=== PATIENT | female | born 1995 | race Caucasian/White ===

== ENCOUNTER → 2019-10-25 12:42 | Outpatient (CLI) | payer SELFPAY ==
[2015-12-28 23:18] VITALS: BMI 24.4
[2019-10-25 13:43] LABS: International Normalized Ratio 0.9; Prothrombin Time (Protime)PT. 12.3 SECONDS (11.7-14.9)
[2019-10-25 13:44] LABS: Partial Thromboplast Time 33.8 Seconds (24.1-36.2)
== END ==
PROVIDERS: Referring Provider Obstetrics & Gynecology; Visit Provider Obstetrics & Gynecology
DX: N92.0 Excessive and frequent menstruation with regular cycle (principal)
CPT/HCPCS: 36415; 85610; 85730

== ENCOUNTER → 2022-02-11 | Outpatient (CLI) | payer OTHER, SELFPAY ==
[2022-02-11 13:39] LABS: Hemoglobin 13.6 g/dL (12.0-15.0); Mean Corp Hgb Conc 33.2 g/dL (32-36); Mean Corpuscular Hgb 29.7 pg (27.0-32.0); Mean Corpuscular Volume 89.5 fL (81-99); Platelet Count 439 K/mm3 (150-450); RBC Distribution Width CV 12.8 % (11.6-14.6); RBC Distribution Width SD 42.1 fl (35.1-43.9); Red Blood Count 4.58 M/mm3 (4.2-5.4); White Blood Count 13.3 K/mm3 (4.4-11.0)
[2022-02-11 13:50] LABS: Ferritin 27 ng/mL (8-252); Iron 45 ug/dL (50-170); Iron Binding Capacity,Total 352 ug/dL (250-450)
[2022-02-14 13:07] LABS: Chlamydia By Nucleic Acid AMP Negative (Negative)
[2022-02-14 13:10] LABS: Gonococcus By Nucleic Acid AMP Negative (Negative)
[2022-02-18 14:21] LABS: HPV Reflexed? NOT INDICATED
== END | disposition home or self-care (01) ==
LOC: WOBLAB 11:10
PROVIDERS: Visit Provider Obstetrics & Gynecology
DX: D64.9 Anemia, unspecified (principal); Z12.4 Encounter for screening for malignant neoplasm of cervix; Z11.3 Encounter for screening for infections with a predominantly sexual mode of transmission
CPT/HCPCS: 36415; 82728; 83540; 83550; 85027; 87491; 87591; 88175; G0145

== ENCOUNTER → 2022-02-19 | Outpatient (CLI) | payer OTHER, SELFPAY ==
[2022-02-19 11:13] LABS: hCG Titer Quant., Serum 362 mIU/mL (1-3)
== END | disposition home or self-care (01) ==
LOC: WOBLAB 09:40
PROVIDERS: Visit Provider Obstetrics & Gynecology
DX: N91.2 Amenorrhea, unspecified (principal)
CPT/HCPCS: 36415; 84702

== ENCOUNTER → 2022-03-17 | Outpatient (CLI) | payer OTHER, SELFPAY ==
[2022-03-17 15:32] LABS: Color, Urine Yellow (Yellow); Glucose, Dipstick Normal (Normal); Ketone-Dipstick Negative (Negative); Leukocyte Esterase-Dipstick Negative /ul (Negative); Nitrite-Dipstick Negative (Negative); Occult Blood-Urine Negative /ul (Negative); Protein-Dipstick Negative (Negative); Urine Bilirubin Dipstick Negative (Negative); Urine Clarity Clear (Clear); Urine Urobilinogen Normal (Normal)
[2022-03-17 15:39] LABS: Absolute Lymphocyte Count 2.97 X10^3/uL (0.83-4.51); Basophil# 0.08 X10^3/uL; Basophil% 0.6 % (0-1); Eosinophil# 0.19 X10^3/uL; Eosinophils% 1.3 % (0-5); Hematocrit 39.9 % (37-47); Hemoglobin 13.4 g/dL (12.0-15.0); Lymphocyte # 2.97 X10^3/ul (0.83-4.51); Lymphocyte % 20.8 % (19-41); Mean Corp Hgb Conc 33.6 g/dL (32-36); Mean Corpuscular Hgb 29.5 pg (27.0-32.0); Mean Corpuscular Volume 87.9 fL (81-99); Mean Platelet Vol. 9.6 fl (6.2-12.0); Monocyte% 6.3 % (0-10); NRBC Flagged by Analyzer 0 % (0-5); Neutrophil # 10.04 X10^3/uL (2.7-7.7); Neutrophil % 70.4 % (47-70); Platelet Count 390 K/mm3 (150-450); RBC Distribution Width CV 12.7 % (11.6-14.6); RBC Distribution Width SD 40.5 fl (35.1-43.9); Red Blood Count 4.54 M/mm3 (4.2-5.4); White Blood Count 14.3 K/mm3 (4.4-11.0)
[2022-03-17 16:29] LABS: Thyroid Stim Hormone (TSH) 0.76 uIU/mL (0.358-3.74)
[2022-03-17 16:40] LABS: Amphetamine Urine VISTA NEGATIVE (<1000 ng/mL); Barbiturate Urine VISTA NEGATIVE (< 200 ng/mL); Benzodiazepine Urine VISTA NEGATIVE (< 200 ng/mL); Cocaine Urine VISTA NEGATIVE (< 300 ng/mL); Ecstacy Urine VISTA NEGATIVE (< 500 ng/mL); Methadone Urine VISTA NEGATIVE (< 300 ng/mL); PCP Urine VISTA NEGATIVE (< 25 ng/mL); THC Urine VISTA NEGATIVE (< 50 ng/mL); Vista UDS pH Range 7
[2022-03-18 01:26] LABS: HIV - WCH Non-Reactive (Nonreactive); Hepatitis B Surface Antigen Non-Reactive (Nonreactive); Hepatitis C Antibody Non-Reactive (Nonreactive); Rubella IgG Reactive (Nonreactive); Syphilis Antibodies Non-reactive
== END | disposition home or self-care (01) ==
LOC: WOBLAB 15:12
PROVIDERS: Visit Provider Obstetrics & Gynecology
DX: Z34.81 Encounter for supervision of other normal pregnancy, first trimester (principal)
CPT/HCPCS: 36415; 80307; 81002; 84443; 85025; 86703; 86762; 86780; 86803; 87086; 87340

== ENCOUNTER 2022-07-13 10:38 | Outpatient (CLI) | payer OTHER, SELFPAY ==
[2022-07-13 11:26] LABS: Absolute Lymphocyte Count 2.39 X10^3/uL (0.83-4.51); Absolute Neutrophil Count 10.4 X10^3/uL (2.0-7.7); Basophil# 0.12 X10^3/uL; Basophil% 0.8 % (0-1); Eosinophil# 0.25 X10^3/uL; Eosinophils% 1.7 % (0-5); Hematocrit 36.7 % (37-47); Hemoglobin 12.3 g/dL (12.0-15.0); Lymphocyte # 2.39 X10^3/ul (0.83-4.51); Lymphocyte % 16.6 % (19-41); Mean Corp Hgb Conc 33.5 g/dL (32-36); Mean Corpuscular Hgb 30.1 pg (27.0-32.0); Mean Corpuscular Volume 89.7 fL (81-99); Monocyte# 0.82 X10^3/uL; Monocyte% 5.7 % (0-10); NRBC Flagged by Analyzer 0 % (0-5); Neutrophil # 10.37 X10^3/uL (2.7-7.7); Neutrophil % 72.1 % (47-70); Platelet Count 397 K/mm3 (150-450); RBC Distribution Width CV 13.6 % (11.6-14.6); RBC Distribution Width SD 44.3 fl (35.1-43.9); Red Blood Count 4.09 M/mm3 (4.2-5.4); White Blood Count 14.4 K/mm3 (4.4-11.0)
[2022-07-13 11:35] LABS: Glucose Challenge Gest 1H 50g 90 mg/dL (70-140)
== END 2022-07-13 23:59 | disposition home or self-care (01) ==
LOC: LABSPEC 10:39
PROVIDERS: Visit Provider Student in an Organized Health Care Education/Training Program
DX: Z34.82 Encounter for supervision of other normal pregnancy, second trimester (principal)
CPT/HCPCS: 36415; 82950; 85025

== ENCOUNTER → 2022-08-18 | Outpatient (CLI) | payer OTHER, SELFPAY | END | disposition home or self-care (01) | LOC: LABSPEC 09:31 | PROVIDERS: Visit Provider Student in an Organized Health Care Education/Training Program | DX: R30.0 Dysuria (principal) | CPT/HCPCS: 87086; 87088 ==

== ENCOUNTER → 2022-10-06 | Outpatient (CLI) | payer OTHER, SELFPAY ==
[2022-10-06 10:44] LABS: Absolute Lymphocyte Count 2.57 X10^3/uL (0.83-4.51); Absolute Neutrophil Count 9.8 X10^3/uL (2.0-7.7); Basophil# 0.08 X10^3/uL; Basophil% 0.6 % (0-1); Eosinophil# 0.26 X10^3/uL; Eosinophils% 1.9 % (0-5); Hematocrit 36.9 % (37-47); Lymphocyte # 2.57 X10^3/ul (0.83-4.51); Lymphocyte % 18.7 % (19-41); Mean Corp Hgb Conc 32.5 g/dL (32-36); Mean Corpuscular Hgb 27.6 pg (27.0-32.0); Mean Platelet Vol. 9.9 fl (6.2-12.0); Monocyte# 0.84 X10^3/uL; Monocyte% 6.1 % (0-10); NRBC Flagged by Analyzer 0 % (0-5); Neutrophil # 9.78 X10^3/uL (2.7-7.7); Platelet Count 373 K/mm3 (150-450); RBC Distribution Width CV 12.9 % (11.6-14.6); RBC Distribution Width SD 39.2 fl (35.1-43.9); Red Blood Count 4.34 M/mm3 (4.2-5.4); White Blood Count 13.8 K/mm3 (4.4-11.0)
[2022-10-06 11:34] LABS: Syphilis Antibodies Non-reactive
== END | disposition home or self-care (01) ==
PROVIDERS: Visit Provider Student in an Organized Health Care Education/Training Program
DX: Z34.83 Encounter for supervision of other normal pregnancy, third trimester (principal)
CPT/HCPCS: 36415; 85025; 86780; 87081

== ENCOUNTER 2022-10-18 09:10 | Inpatient (IN) | payer OTHER, SELFPAY ==
[2022-10-18] VITALS (44 sets, daily range): BP systolic 100–138; BP diastolic 58–83; PULSE 90–131; TEMP 36–37.1; O2SAT 76–100; BMI 34.9
[2022-10-18 09:09] LABS: ROM Internal Control Test YES-OK TO RESULT pt. (Internal QC)
[2022-10-18 09:10] LABS: ROM Patient Test POSITIVE (Negative)
--- NOTE | 2022-10-18 09:25 | HP.PCM.OB_ITS ---
History and Physical Date of Admission: 10/18/22 HPI: 27-year-old G1, P0 at 38/3 weeks, DAREN 10/29/2022 by LMP consistent with first trimester ultrasound, admitted for spontaneous rupture of membranes. Patient rupture membranes around 630 this morning. Reports regular contractions. Denies vaginal bleeding. Reports movement. Denies headache or vision changes, chest pain or shortness of breath, nausea or vomiting, diarrhea or constipation, fevers or chills. uncomplicated [employer] history: G1 current Medical history: Denies Surgical history: Denies Allergies: 1. Augmentin causes diarrhea Family history: Denies history of blood clots or bleeding disorders Social history: Denies tobacco, alcohol, drug use Review system: Negative otherwise stated above Physical exam: Blood pressure 128/77, heart rate 105, temp 97.7 ?F, oxygen saturation 96% on room air General: No acute distress HEENT: Normal cephalic/atraumatic, PERRLA Cardiorespiratory: No increased effort Abdomen: Soft, nontender, gravid Extremities: Minimal edema Cervical exam: 4 cm, grossly ruptured per RN Neurologic: Cranial nerves II through XII grossly intact, no focal deficits Musculoskeletal: Strength 5 out of 5 throughout extremities FHR: 120/mod leighann/+accel/no decel [place]: q5-7 Assessment/plan: 27-year-old G1, P0 at 38/3 weeks, DAREN 10/29/2022 by LMP consistent with first trimester ultrasound, admitted for spontaneous rupture of membranes. uncomplicated ?Admit for spontaneous rupture of membranes, labor. ?GBS negative ?Plan for expectant management at this time as patient has made cervical change from last visit last week ?Will augment with Pitocin if needed
[2022-10-18 09:46] LABS: Absolute Lymphocyte Count 2.27 X10^3/uL (0.83-4.51); Absolute Neutrophil Count 11.2 X10^3/uL (2.0-7.7); Basophil# 0.07 X10^3/uL; Basophil% 0.5 % (0-1); Eosinophil# 0.22 X10^3/uL; Eosinophils% 1.5 % (0-5); Hematocrit 36.4 % (37-47); Hemoglobin 12.3 g/dL (12.0-15.0); Lymphocyte # 2.27 X10^3/ul (0.83-4.51); Lymphocyte % 15.3 % (19-41); Mean Corp Hgb Conc 33.8 g/dL (32-36); Mean Corpuscular Volume 82.7 fL (81-99); Mean Platelet Vol. 9.9 fl (6.2-12.0); Monocyte# 0.79 X10^3/uL; Monocyte% 5.3 % (0-10); NRBC Flagged by Analyzer 0 % (0-5); Neutrophil # 11.22 X10^3/uL (2.7-7.7); Neutrophil % 75.7 % (47-70); Platelet Count 384 K/mm3 (150-450); RBC Distribution Width CV 13.4 % (11.6-14.6); RBC Distribution Width SD 39.9 fl (35.1-43.9); White Blood Count 14.8 K/mm3 (4.4-11.0)
[2022-10-18] MEDS: 0.9% Saline Lock 10 ML Syringe IV (13:16)
[2022-10-18] MEDS: Oxytocin 15 Units/NS 250ml 15 UNITS/250 ML IV.SOLN 2 UNITS IV (13:19)
[2022-10-18] MEDS: Lactated Ringers 1,000 ML 50 ML IV (13:22)
[2022-10-18] MEDS: LACTATED RINGERS 500 ML 999 ML IV ×2 (14:10→19:13)
[2022-10-18] MEDS: fentaNYL-bupivacaine (epidural) 100 ML BAG EPIDURAL ×3 (14:45→23:50)
[2022-10-18] MEDS: Lactated Ringers 1,000 ML 200 ML IV (19:08)
--- NOTE | 2022-10-18 19:37 | PN.OBGYN_ITS ---
Subjective Subjective Called for prolonged heart rate deceleration. Upon arrival patient on hands and knees, comfortable with epidural. Objective Data Objective Data Vital Signs: Vital Signs Temp Pulse BP Pulse Ox 98.1 F 109 H 138/73 H 100 10/18/22 17:22 10/18/22 19:29 10/18/22 19:28 10/18/22 19:29 Weight: 101.378 kg Body Mass Index (BMI) 34.9 Intake & Output: Intake and Output for Last 24 Hours 10/16/22 10/17/22 10/18/22 23:59 23:59 23:59 Intake Total 1457.51 / 1457.51 Balance 1457.51 / 1457.51 Lab / Micro Data Result Diagrams: 10/18/22 09:30 Labs: Laboratory Results - last 24 hr 10/18/22 08:45: Vag Amniotic Fld Detect POSITIVE H 10/18/22 09:30: WBC 14.8 H, RBC 4.40, Hgb 12.3, Hct 36.4 L, MCV 82.7, MCH 28.0, MCHC 33.8, RDW Std Deviation 39.9, RDW Coeff of Rodrick 13.4, Plt Count 384, MPV 9.9, Immature Gran % (Auto) 1.700 H, Neut % (Auto) 75.7 H, Lymph % (Auto) 15.3 L , Rosebud % (Auto) 5.3, Eos % (Auto) 1.5, Baso % (Auto) 0.5, Absolute Neuts (auto) 11.2 H, Absolute Lymphs (auto) 2.27, Nucleated RBC % 0 10/18/22 09:30: Blood Type O POSITIVE, Antibody Screen NEGATIVE Physical Exam Const alert, oriented x3 and no apparent distress Resp normal respiratory effort Cardio regular rate GI non-tender and non-distended Inspection: gravid Narrative: 8 cm per rn Extremity Extremity Narrative: minimal edema Assessment & Plan (1) Spontaneous rupture of membranes: PLAN: 27-year-old G1 at 38/3 weeks admitted for rupture membranes. Prolonged heart rate deceleration to a maylin of 90s for 9 minutes. Resolved with position change, Pitocin off, LR bolus, oxygen. Patient making rapid cervical change and descent. heart rate now 125/moderate variability/no accelerations/no decelerations. Continue with expectant management at this time. Will restart Pitocin if needed after at least 30 minutes of category 1 strip. All questions answered in room.
[2022-10-18] MEDS: Mag Hydrox/Al Hydrox/Simeth 30 ML UDC PO (23:52)
[2022-10-19] VITALS (23 sets, daily range): BP systolic 104–135; BP diastolic 54–92; PULSE 77–117; RESP 14–18; TEMP 36.1–37.2; O2SAT 96–99
[2022-10-19] MEDS: LACTATED RINGERS 500 ML 999 ML IV (00:23)
[2022-10-19] MEDS: Lactated Ringers 1,000 ML 200 ML IV (00:54)
[2022-10-19] MEDS: Sodium Citrate/Citric Acid 30 ML UDC PO (01:05)
[2022-10-19] MEDS: Acetaminophen 500 MG Tablet PO (01:06)
--- NOTE | 2022-10-19 01:07 | PCM.PN.OB ---
Subjective Subjective Patient seen and examined. Comfortable with epidural. Objective Data Objective Data Vital Signs: Vital Signs Temp Pulse BP Pulse Ox 99.0 F 117 H 135/75 H 97 10/19/22 00:44 10/19/22 00:44 10/19/22 00:44 10/19/22 00:44 Weight: 101.378 kg Body Mass Index (BMI) 34.9 Intake & Output: Intake and Output for Last 24 Hours 10/17/22 10/18/22 10/19/22 23:59 23:59 23:59 Intake Total 1982.44 / 1982.44 1448.53 / 1448.53 Output Total 1600 / 1600 Balance 383.44 / 383.44 1448.53 / 1448.53 Lab / Micro Data Result Diagrams: 10/18/22 09:30 Labs: Laboratory Results - last 24 hr 10/18/22 08:45: Vag Amniotic Fld Detect POSITIVE H 10/18/22 09:30: WBC 14.8 H, RBC 4.40, Hgb 12.3, Hct 36.4 L, MCV 82.7, MCH 28.0, MCHC 33.8, RDW Std Deviation 39.9, RDW Coeff of Rodrick 13.4, Plt Count 384, MPV 9.9, Immature Gran % (Auto) 1.700 H, Neut % (Auto) 75.7 H, Lymph % (Auto) 15.3 L, [place] % (Auto) 5.3, Eos % (Auto) 1.5, Baso % (Auto) 0.5, Absolute Neuts (auto) 11.2 H, Absolute Lymphs (auto) 2.27, Nucleated RBC % 0 10/18/22 09:30: Blood Type O POSITIVE, Antibody Screen NEGATIVE Physical Exam Const alert, oriented x3 and no apparent distress HEENT normocephalic Resp normal respiratory effort GI non-tender and non-distended Inspection: gravid Narrative: /-1. large amount of cervix anterior, Extremity Extremity Narrative: +1 edema Neuro moves all extremities and no sensory deficits noted Psych mental status grossly normal and affect normal Assessment & Plan (1) Spontaneous rupture of membranes: PLAN: 27-year-old G1 at 38/4 weeks admitted for spontaneous rupture membranes. Now planning for primary section in an urgent, nonemergent fashion for intolerance of labor. Since first prolonged heart rate deceleration yesterday evening, Patient has had 2 subsequent prolonged decelerations. An intermittent variable and late decelerations. Variability has been moderate, with accelerations. She had been making cervical change. However now cervix has been unchanged with large amount anterior. Unable to titrate Pitocin due to decelerations. Discussed options for management. Decision for primary section made. All risk, benefits, alternatives discussed patient. Risk include but are not limited to: Risk bleeding twin transfusion, infection, injury to surrounding tissue including bowel/bladder potentially requiring prolonged Austin catheter use, VTE, ICU admission. Patient aware and consented. Consent signed. All questions answered. Reports rash as a child to Augmentin, has received Keflex in the past. We will give 2 g Ancef and 500 mg azithromycin preoperatively. (2) intolerance to labor, delivered, current hospitalization:
[2022-10-19] MEDS: Cefazolin 2 GM in 0.9% Normal Saline 100 ML IV (01:25)
--- NOTE | 2022-10-19 02:14 | NURSING ---
Mother gives assent for hepatitis B vaccine
--- NOTE | 2022-10-19 02:18 | EX.PCM.OBRPT ---
Details Operative Information Date of Procedure: 10/19/22 Pre-Operative Diagnosis: Meek intrauterine , intolerance of labor Post-Operative Diagnosis: Meek intrauterine , intolerance of labor Indications Narrative: 27-year-old G1, P0 at 38/4 weeks for primary section for intolerance of labor. All risk, benefits, alternatives discussed with the patient. Risk include are not limited to: Risk of bleeding the point of transfusion, injury to surrounding tissue including bowel/bladder potentially requiring prolonged Austin catheter use, VTE, ICU admission. Patient were consented. Classification: JACKI Procedure Type: low transverse Type of Anesthesia: Epidural Estimated Blood Loss: 800cc Fluids Replaced: 1000cc Findings Description of Procedure: Patient taken to the operating room and epidural dosed. Patient placed in the supine position with a left lateral tilt. Vaginal prep completed. pillow placed into the vagina, 180 cc fluid instilled into the pillow. Abdomen then prepped. Patient draped. Pfannenstiel skin incision made with scalpel and carried down through subcutaneous tissue. Fascia nicked on either side of the midline and extended bluntly. Lizabeth clamps placed the superior fascial edge which was tented up and underlying rectus muscles were dissected off bluntly and sharply at midline using Galloway scissors. Lizabeth clamps moved to the inferior fascial edge which was tented up and underlying rectus muscles were dissected off bluntly and sharply at midline using Galloway scissors. Hemostats used to separate rectus muscle superiorly. Peritoneum entered bluntly. Bladder blade placed. Low transverse uterine incision made with scalpel and entered bluntly. Hysterotomy extended bluntly. Hand placed into the uterine cavity. head in the occiput posterior position. Head elevated to the level of the hysterotomy. Bladder blade removed. Head delivered followed by body. Nuchal cord x1, loose, reduced. Cord clamped and cut. Baby to nursing. Manual extraction of placenta. Uterus exteriorized and cleared of all clots. pillow drained. Hysterotomy closed with a run locking stitch followed by second imbricating stitch. Small amount of oozing noted, Shalom placed. Hysterotomy hemostatic. Peritoneum closed with a running stitch. Subcutaneous tissue irrigated. Skin closed with running subcuticular stitch. pillow removed from vagina. At the end of the procedure all needle, lap, sponge counts were correct. Urine output: 300 cc blood-tinged urine, was blood-tinged prior to surgery. Infant A Gender: Male (1 minute): 8 (5 minute): 9 Complications Complications: none
[2022-10-19] MEDS: Oxytocin 15 Units/NS 250ml 15 UNITS/250 ML IV.SOLN 83 UNITS IV (02:55)
[2022-10-19] MEDS: 0.9% Saline Lock 10 ML Syringe IV ×4 (03:04→21:49)
[2022-10-19] MEDS: Ketorolac 30 MG/ML Syringe IV ×4 (03:26→21:44)
--- NOTE | 2022-10-19 04:10 | NURSING ---
Patient given double pump and educated on use. Questions answered.
--- NOTE | 2022-10-19 06:37 | NURSING ---
pillow removed in OR, intact at 0210
[2022-10-19] MEDS: Lactated Ringers 1,000 ML 100 ML IV (06:44)
[2022-10-19] MEDS: Acetaminophen 500 MG Tablet 1000 MG PO ×3 (06:56→18:52)
[2022-10-19] MEDS: Senna/Docusate Sodium 1 Tablet PO (10:08)
[2022-10-19] MEDS: Enoxaparin 40 MG/0.4 ML Syringe SC (15:20)
[2022-10-20 01:00] VITALS: BP 127/62; PULSE 105; RESP 16; TEMP 36.8
[2022-10-20] MEDS: Acetaminophen 500 MG Tablet 1000 MG PO ×4 (01:05→18:47)
--- NOTE | 2022-10-20 02:07 | PCM.PN.OB ---
Subjective Subjective Doing well. Pain controlled. Lochia minimal. Objective Data Objective Data Vital Signs: Vital Signs Temp Pulse Resp BP Pulse Ox O2 Del Method 98.3 F 105 H 16 127/62 H 96 Room Air 10/20/22 01:00 10/20/22 01:00 10/20/22 01:00 10/20/22 01:00 10/19/22 15:26 10/20/22 01:00 Oxygen Delivery Method Room Air Weight: 101.378 kg Body Mass Index (BMI) 34.9 Intake & Output: Intake and Output for Last 24 Hours 10/18/22 10/19/22 10/20/22 23:59 23:59 23:59 Intake Total 1983.44 / 1983.44 2645.19 / 2645.19 Output Total 1600 / 1600 3450 / 3450 Balance 383.44 / 383.44 -804.81 / -804.81 Lab / Micro Data Attestation: I reviewed the patient's lab results. Result Diagrams: 10/18/22 09:30 Physical Exam Const alert, oriented x3 and no apparent distress HEENT normocephalic Head and Scalp: atraumatic Neck full ROM Resp normal respiratory effort Cardio regular rate GI normal to inspection, nondistended, normoactive bowel sounds GI Narrative: Uterus 2 cm below umbilicus, dressing clean and dry Back/Spine normal ROM Extremity normal to inspection Extremity Narrative: Minimal pedal edema Neuro no focal motor deficits and no sensory deficits noted Psych mental status grossly normal and affect normal Assessment & Plan (1) Other acute postprocedural pain: (2) Delivery by section: PLAN: Postop day 1 status post primary section for intolerance of labor. Pain controlled. Lochia minimal. Pumping. Likely home postop day 1?2.
[2022-10-20] MEDS: Ibuprofen 600 MG Tablet PO ×4 (03:30→22:09)
[2022-10-20 06:11] LABS: Hemoglobin 8.8 g/dL (12.0-15.0); Mean Corp Hgb Conc 32.6 g/dL (32-36); Mean Corpuscular Hgb 27.8 pg (27.0-32.0); Mean Corpuscular Volume 85.4 fL (81-99); Mean Platelet Vol. 9.8 fl (6.2-12.0); Platelet Count 349 K/mm3 (150-450); RBC Distribution Width CV 13.4 % (11.6-14.6); RBC Distribution Width SD 41.2 fl (35.1-43.9); Red Blood Count 3.16 M/mm3 (4.2-5.4)
[2022-10-20 08:05] VITALS: BP 106/55; PULSE 108; RESP 16; TEMP 36.3; O2SAT 96
[2022-10-20] MEDS: Enoxaparin 40 MG/0.4 ML Syringe SC (10:09)
[2022-10-20 14:00] VITALS: BP 122/62; PULSE 101; RESP 16; TEMP 36.3; O2SAT 94
[2022-10-20 20:10] VITALS: BP 124/79; PULSE 89; RESP 16; TEMP 37; O2SAT 97
[2022-10-21] MEDS: Acetaminophen 500 MG Tablet 1000 MG PO ×3 (01:09→13:14)
[2022-10-21 02:35] VITALS: BP 121/73; PULSE 107; RESP 16; TEMP 37.1; O2SAT 97
[2022-10-21] MEDS: Ibuprofen 600 MG Tablet PO ×3 (04:00→16:32)
--- NOTE | 2022-10-21 06:32 | DS.PCM_ITS ---
Discharge Summary Date of Admission: 10/18/22 Date of Discharge: 10/21/22 Summary: Patient arrived on 10/18/2022 in labor. Had intolerance of labor and subsequently had primary section on 10/19/2022. Routine postoperative recovery. Discharge home on 10/21/2022 Meaningful Use Info Meaningful Use Diagnoses (Choose all that apply): None applicable Discharge Plan Admission Admit Date/Time: 10/18/22 09:10 Primary Reason for Your Visit: section Attending Provider: Grace Page Instructions Additional Instructions / Restrictions: Regular diet. Okay to shower. No tub baths for 2 weeks. No intercourse for 4 to 6 weeks. No lifting over 25 pounds for 2 to 3 weeks. Call if fevers, ch ills, chest pain, shortness of breath. Follow-up 2 weeks postoperatively Discharge Orders/Prescriptions Prescriptions: New oxycodone 5 mg Tablet 5 mg PO Q6H PRN (Reason: pain) 5 Days Qty: 20 0RF Continued Prenatabs FA 1 tab PO.IVFORM DAILY Disposition Disposition (needs filled in before D/C Order can be placed): Home, Self Care
--- NOTE | 2022-10-21 06:33 | PCM.PN.OB ---
Subjective Subjective No overnight complaints. Pain well controlled Objective Data Objective Data Vital Signs: Vital Signs Temp Pulse Resp BP Pulse Ox O2 Del Method 98.8 F 107 H 16 121/73 H 97 Room Air 10/21/22 02:35 10/21/22 02:35 10/21/22 02:35 10/21/22 02:35 10/21/22 02:35 10/21/22 02:35 Oxygen Delivery Method Room Air Weight: 223 lb 8 oz Body Mass Index (BMI) 34.9 Intake & Output: Intake and Output for Last 24 Hours 10/19/22 10/20/22 10/21/22 23:59 23:59 23:59 Intake Total 2645.19 / 2645.19 Output Total 3450 / 3450 Balance -804.81 / -804.81 Lab / Micro Data Result Diagrams: 10/20/22 06:00 Physical Exam Const alert, oriented x3, no apparent distress, average body habitus, healthy appearing and well nourished HEENT normocephalic and moist oral mucous membranes Eyes PERRL Neck full ROM Resp normal respiratory effort and no retractions GI GI Narrative: Soft, nontender, bandage clean dry and intact Extremity normal to inspection, full ROM and no clubbing, cyanosis or edema Neuro moves all extremities and no focal motor deficits Psych mental status grossly normal, affect normal, speech normal and activity/motor behavior normal Assessment & Plan (1) Delivery by section: PLAN: Postop day 2 status post primary section for nonreassuring heart tones. Pumping breastmilk. Pain well controlled. Okay to discharge home today
[2022-10-21 07:41] VITALS: BP 116/67; PULSE 91; RESP 16; TEMP 36.1; O2SAT 97
[2022-10-21] MEDS: Enoxaparin 40 MG/0.4 ML Syringe SC (10:16)
[2022-10-21] MEDS: Senna/Docusate Sodium 1 Tablet PO (10:16)
[2022-10-21 13:16] VITALS: BP 131/77; PULSE 102; RESP 16; TEMP 36.3; O2SAT 99
--- NOTE | 2022-10-21 15:27 | CASEMGMT ---
Social Work Brief Assessment Labor and Delivery Unit Patient Address: [address] [place] [address] [address], [place] [address] Phone number: [phone] Date of Referral/Notification: 10/19/2022 Time of Referral: 422 Referred By: Dr. Grace Page Date of Intervention: 10/21/2022 Time of Intervention: 1500 Reason for Referral: Maternal history of depression and anxiety Informant: Medical record and mother of baby (MOB) Bean Arana; father of baby (FOB) Romeo Leal present for part of conversation. History: WALT is a 27-year-old single female, involved with the FOB for the last 1 year. [place] baby is the first child for both parents. WALT is 1, para 0 now 1 after delivering baby waleska Byrne on 10/19/2022. weight 7 pounds 6 ounces. Apgars 8 and 9 at 1 and 5 minutes of life respectively. MOB works as a deputy treasurer for the [employer]. FOB is a police patrol lieutenant for [employer]. MOB reports a history of anxiety. No current treatment. Denies any history of suicidal ideation, intent or attempts. During private conversation with the MOB, MOB denied any type of domestic violence concerns. Both parents denied any type of substance use concerns or history. Maternal drug screen was negative on 03/17/2022. Assessment: Met with MOB and FOB in room, introducing to self and social work role. Then met privately with MOB and reviewed some depression screening questions as well as addressed topic of domestic violence. MOB and FOB both engaged in conversation, polite and cooperative. MOB and FOB reported to have adequate housing, work MOB having her own apartment. FOB stays at the home frequently and will be involved and present. FOB reportedly has 3 weeks off work to help with the transition home. No reported concerns with transportation. Reports to have all necessary supplies including safe sleep space and car seat. MOB and FOB report there is family support on both sides. MOB also has some female friends who are supportive. Educated parents to mood and anxiety disorders, risk factors and importance of seeking out help and support. MOB and FOB discussed that they had done some reading prior to delivery, about this topic due to wanting to be proactive and the FOB being able to help MOB should distress occur. MOB reports she has had some anxiety during the , but nothing that has stopped MOB from completing daily tasks. MOB reports to feel mood and anxiety is stable at this time and reports willing to go and get help should symptoms arise and become distressing. MOB and FOB excepted information on mood and anxiety disorders and resources for such. Provided information on helping grow and resource list for [facility] as MOB is interested in looking into [place]. MOB is planning to pump and bottle feed the baby also indicated interest in resources for formula should pumping out as MOB desires. MOB reports to feel connection to the baby. There have been no voiced concerns by nursing staff regarding parent-child interactions or bonding. Plan: MOB and infant will discharge home. FOB will be present in the home to help with the transition. Resources provided for home-going and MOB indicates will seek out help and support should symptoms of depression or anxiety arise in the timeframe. No further needs requested or indicated. -ANA Storm, MARVIN *This note was generated with Regenation software. It may contain incorrect words, spelling, and punctuation that were not noted in review of the chart prior to signing*
== END 2022-10-21 16:45 | disposition home or self-care (01) | DRG 788 ==
LOC: WPOUT 09:14 → WP 09:14
PROVIDERS: Admitting Provider Student in an Organized Health Care Education/Training Program; Referring Provider Student in an Organized Health Care Education/Training Program; Visit Provider Student in an Organized Health Care Education/Training Program
DX: O76 Abnormality in fetal heart rate and rhythm complicating labor and delivery (principal); O69.81X0 Labor and delivery complicated by cord around neck, without compression, not applicable or unspecified; Z3A.38 38 weeks gestation of pregnancy; Z37.0 Single live birth
CPT/HCPCS: 59025; 59050; 84112; 85025; 85027; 86850; 86900; 86901; 99221; J7120; A4216; G0378; J2405

== ENCOUNTER → 2022-10-26 | Outpatient (CLI) | payer OTHER, SELFPAY ==
--- NOTE | 2022-10-26 14:37 | VDLE_ITS ---
Reason For Study: Swelling RIGHT LEFT GSV is normal. GSV is normal. CFV is compressible, spontaneous, phasic, CFV is compressible, spontaneous, phasic, competent and demonstrates normal competent, and demonstrates normal augmentation. augmentation. FV is compressible, spontaneous, phasic, FV is compressible, spontaneous, phasic, competent and demonstrates normal competent and demonstrates normal augmentation. augmentation. POP V is compressible, spontaneous, phasic, POP V is compressible, spontaneous, phasic, competent and demonstrates normal competent and demonstrates normal augmentation. augmentation. T/P Trunk is compressible. T/P Trunk is compressible. PTV is compressible. PTV is compressible. RT PerV is compressible. LT PerV is compressible. Procedure This is a venous duplex using B-mode, color flow and spectral Doppler. Exam performed in department. A preliminary report was called and/or faxed to Harriet Page. VL/Venous Duplex US - Gildardo Extrem Interpretation Summary No evidence for acute deep venous thrombosis bilateral lower extremities with p atent and compressible bilateral great saphenous veins. Ordering Physician: Grace Page Referring Physician: Brando Mackenzie Performed By: Saida Waite RVT
== END | disposition home or self-care (01) ==
LOC: CVS 14:36
PROVIDERS: PCP Nurse Practitioner Family; Visit Provider Student in an Organized Health Care Education/Training Program
DX: Z48.816 Encounter for surgical aftercare following surgery on the genitourinary system (principal)
CPT/HCPCS: 93970

== ENCOUNTER → 2023-04-16 | Outpatient (CLI) | payer OTHER, SELFPAY ==
--- NOTE | 2023-04-16 12:31 | RAD_ITS ---
STUDY: X-RAY - RIGHT FOOT CLINICAL: Female, 27 years old. RIGHT 5TH TOE CONTUSION TECHNIQUE: 3 view(s) of the foot. COMPARISON: None. FINDINGS: Small spur at insertion of the Achilles tendon. Normal visualized subtalar, talonavicular, calcaneocuboid, tarsal and tarsometatarsal articulations. Normal metatarsi. Normal metatarsophalangeal joint of the great toe. Normal tibial and fibular sesamoid bones. Normal interphalangeal joint of the great toe. Normal phalanges of the great toe. Normal second through fifth metatarsophalangeal joints. Normal interphalangeal joints and phalanges of the lesser toes. The soft tissue structures are unremarkable. RAD/Foot min 3 Views IMPRESSION: Small spur is seen at the insertion of the Achilles tendon. Electronically Signed: Adi Dixon MD at 14:42 EDT ,
== END | disposition home or self-care (01) ==
LOC: RAD 12:28
PROVIDERS: PCP Nurse Practitioner Family; Referring Provider Nurse Practitioner Primary Care; Visit Provider Nurse Practitioner Primary Care
DX: S90.121A Contusion of right lesser toe(s) without damage to nail, initial encounter (principal)
CPT/HCPCS: 73630

== ENCOUNTER → 2023-06-14 | Outpatient (CLI) | payer OTHER, SELFPAY ==
[2023-06-18 16:38] LABS: HPV Reflexed? NOT INDICATED
== END | disposition home or self-care (01) ==
LOC: WOBLAB 13:56
PROVIDERS: PCP Nurse Practitioner Family; Visit Provider Student in an Organized Health Care Education/Training Program
DX: Z12.4 Encounter for screening for malignant neoplasm of cervix (principal)
CPT/HCPCS: 88175; G0145

== ENCOUNTER → 2024-09-23 | Outpatient (CLI) | payer OTHER, SELFPAY ==
--- NOTE | 2024-09-23 09:03 | MRI_ITS ---
STUDY: MRI RIGHT FOREFOOT WITHOUT CONTRAST REASON FOR EXAM: Female, 29 years old. RT FOOT PAINFUL MASS 1ST MTPJ TECHNIQUE: Standardized fat and water weighted pulse sequences were obtained in all 3 orthogonal planes. COMPARISON: None. FINDINGS: Small joint effusion of the metatarsophalangeal joint of the hallux. Normal tibial and fibular sesamoids, with normal sesamoids-first metatarsal articulations. Normal interphalangeal joint of the hallux. Normal proximal and distal phalanges of the great toe. Normal medial and lateral heads of the flexor hallucis brevis tendons. Normal flexor and extensor hallucis longus tendons. Small joint effusions of the second through fourth metatarsophalangeal (MTP) joints. Normal interphalangeal joints of the second through fifth toes. Normal proximal, middle and distal phalanges of the second through fifth toes. Normal first through fourth intermetatarsal spaces. Normal flexor and extensor tendons of the second through fifth toes. Normal visualized metatarsi. Normal intrinsic muscles of the forefoot. There is no demonstrated soft tissue abnormality. MRI/Lower Ext/No Jt/w/o IMPRESSION: Small joint effusions of the metatarsophalangeal joints. Electronically Signed: Brando Xie MD at 10:22 [facility] ,
== END | disposition home or self-care (01) ==
PROVIDERS: PCP Nurse Practitioner Family; Referring Provider Podiatrist; Visit Provider Podiatrist
DX: D49.2 Neoplasm of unspecified behavior of bone, soft tissue, and skin (principal)
CPT/HCPCS: 73718

== ENCOUNTER → 2025-02-27 | Outpatient (CLI) | payer OTHER, SELFPAY ==
--- NOTE | 2025-02-27 07:12 | US_ITS ---
PROCEDURE: TRANSVAGINAL NON- 02/27/2025 REASON FOR EXAM: EXCESSIVE FREQUENT MENSTRUATION WITH REGULAR CYCLE TECHNIQUE: Transabdominal pelvic ultrasound COMPARISON: None FINDINGS: LMP: January 29, 2025. Measurements: Uterus: 8.8 cm x 6.3 cm x 5.0 cm with a volume of 146.81 mL Endometrial Thickness: 13 mm it is hyperechoic. Right Ovary: 4.1 cm x 3 cm x 2.4 cm with a volume of 15.51 mL. Left Ovary: 2.7 cm x 1.5 cm x 1.5 cm with a volume of 3.09 mL. Uterus: Normal size, myometrial echotexture, and contour. Endometrium: Endometrial thickening measuring 13 mm. The endometrium is hyperechoic. Right ovary: Normal size and echotexture. A dominant follicle is seen within it. Left ovary: Normal size and echotexture. Other: No large pelvic mass identified. US/Transvaginal Non- IMPRESSION: Endometrial thickening as described. Small right ovarian follicle. Reading [facility]
--- NOTE | 2025-02-27 07:12 | US_ITS ---
PROCEDURE: ABDOMEN LIMITED 02/27/2025 REASON FOR EXAM: RUQ PAIN COMPARISON: None FINDINGS: Liver: Diffusely echogenic suggesting fatty infiltration. Hepatomegaly. The liver measures 18.3 cm. Gallbladder: No stones, sludge, wall thickening or tenderness. Common bile duct: Normal measuring 4 mm . Pancreas: Normal Other: Right kidney measures 12.2 cm 5.9 cm 6 cm. The spleen is not enlarged. It measures 10.9 cm 4.9 cm 4.3 cm. US/Abdomen Limited IMPRESSION: Hepatomegaly and diffuse fatty infiltration of the liver. Reading Location: [place] [id number]
== END | disposition home or self-care (01) ==
PROVIDERS: PCP Nurse Practitioner Family; Referring Provider Nurse Practitioner Family; Visit Provider Nurse Practitioner Family
DX: R10.11 Right upper quadrant pain (principal); N92.0 Excessive and frequent menstruation with regular cycle
CPT/HCPCS: 76705; 76830